=== PATIENT | female | born 1975 | race Caucasian/White ===

== ENCOUNTER 2020-10-11 17:07 | Outpatient (CLI) | payer BC ==
[~2020-10-11] VITALS: Ht 157.5 cm; Wt 72.7 kg
--- NOTE | 2020-10-11 17:15 | NUR ---
Patient arrives ambulatory with S/O with complaints of vaginal bleeding and cramping. Patient does not present with records. Patient states she is a G4L2 with a history of 2 SVDs and one SAB. Patient states she was seen in [place], [place] at "[facility] and was last seen in June". Patient states her LMP is around 05/06 and had a sono at that office that dated her "around 15-16 weeks". Patient states she is in the process of getting care set up with Dr. Bonds's office and was "working on an appointment for next week". Patient states she woke up "in a pool of blood yesterday morning". She said she has had continued bleeding with "handfuls of clots and atwood stuff" with intense cramping. Patient states her only medical history is a history of anemia. Jose Guzman RN at bedside and unable to doppler FHTs. Dr. Arndt notified, see physician notification. Patient updated on plan of care. 1739- Dr. Arndt at bedside. Bedside ultrasound performed, unable to visualize IUP per physician. Physician orders formal ultrasound and labs.
[2020-10-11 17:20] VITALS: BP 135/87; PULSE 88; TEMP 98.1
--- NOTE | 2020-10-11 17:45 | NUR ---
SVE per Dr. Arndt. 1-2/thick/high, vaginal bleeding noted. Nothing noted in vaginal vault.
--- NOTE | 2020-10-11 18:06 | NUR ---
Ultrasound at bedside.
--- NOTE | 2020-10-11 18:10 | NUR ---
pt out of bathroom, dressed in own clothes sitting in chair. Reports vaginal bleeding and clots. States "more comfortable in my own clothes" Explained to pt that we are waiting for lab results to determine further plan of care. Pt inquires how long lab will take.
[2020-10-11 18:21] LABS: BASO # 0.1 (0.0-0.2); BASO % 0.6 % (0.0-2.0); EOS # 0.1 (0.0-0.7); EOS % 0.9 % (0-4.0); GRAN # 9.5 (1.4-6.5); GRAN % 75.5 % (42.2-75.2); LYMPH % 16.1 % (20.0-51.0); MEAN CELL VOLUME 67 fl (80.0-100.0); MEAN CORPUSCULAR HGB CONC 28 g/dl (33.0-37.0); MEAN PLATELET VOLUME 9.7 fl (7.4-10.4); MONO # 0.8 (0.1-0.6); MONO % 6.5 % (1.7-9.3); PLATELET COUNT 518 K/mm3 (130-400); RED BLOOD COUNT 4.85 M/mm3 (4.10-5.30); REDCELL DISTRIBUTION WIDTH-CV 19.3 % (11.5-14.5)
[2020-10-11 18:23] LABS: HEMATOCRIT 32.5 % (37.0-47.0); HEMOGLOBIN 9.1 g/dl (12.5-16.0); MEAN CORPUSCULAR HEMOGLOBIN 19 pg (27.0-31.0)
--- NOTE | 2020-10-11 18:25 | NUR ---
Dr Arndt into room to review lab/ultrasound findings. Explained to pt that there is no indication of in uterus or blood work. Also explained to pt that there does appear to be a uterine fibroid. Pt inquires "how can I not be prenant, where did the baby go, why haven't I had my priod" Significant other states "maybe you lost it at home" Dr Arndt reveals that r/t labs and ultrasound that it is unlikely that pt was . Suggest follow up at [facility] in 1 week. Ambulatory off unit with significant other @[id number].
[2020-10-11 19:06] LABS: HIV 1/2 Antibodies Non-Reactive; HIV-1p24 Antigen Non-Reactive
[2020-10-11 21:21] LABS: COLLECTION METHOD CATHETER
[2020-10-11 21:34] LABS: MUCOUS Present /lpf; PH 6 (5-8); URINE APPEARANCE Cloudy; URINE BACTERIA None Seen /hpf; URINE BILIRUBIN Negative (NEGATIVE); URINE BLOOD 3+ (NEGATIVE); URINE CALCIUM OXALATE CRYSTAL Present /hpf; URINE COLOR Yellow; URINE GLUCOSE Negative (NEGATIVE); URINE KETONE Negative (NEGATIVE); URINE LEUKOCYTE ESTERASE Trace (NEGATIVE); URINE NITRATE Negative (NEGATIVE); URINE PROTEIN(semi-quant) 2+ (NEGATIVE); URINE RBC >50 /hpf; URINE UROBILINOGEN Negative (NEGATIVE); URINE WBC 20-50 /hpf
[2020-10-11 22:09] LABS: TRICYCLIC ANTIDEPRESS URINE NEGATIVE
[2020-10-12 18:20] LABS: HEPATITIS B SURFACE ANTIGEN Negative (Negative)
== END 2020-10-11 18:40 | disposition home or self-care (01) ==
LOC: LDRO 17:07 → LDR 17:07 → LDRO 17:15 → LDR 18:40
PROVIDERS: Obstetrics & Gynecology
DX: O46.93 Antepartum hemorrhage, unspecified, third trimester (principal); R25.2 Cramp and spasm; N85.2 Hypertrophy of uterus; Z3A.00 Weeks of gestation of pregnancy not specified
CPT/HCPCS: OP

== ENCOUNTER 2021-03-12 08:05 | Emergency (ER) | payer BC ==
[~2021-03-12] VITALS: Ht 152.4 cm; Wt 70.0 kg
[2021-03-12] MEDS ORDERED: PROFE180 MG PO (08:24)
[2021-03-12 08:41] LABS: BASO # 0.1 (0.0-0.2); BASO % 0.9 % (0.0-2.0); EOS # 0.1 (0.0-0.7); EOS % 0.9 % (0-4.0); GRAN # 4.4 (1.4-6.5); GRAN % 56.1 % (42.2-75.2); LYMPH # 2.6 (1.2-3.4); LYMPH % 33.2 % (20.0-51.0); MEAN CELL VOLUME 66 fl (80.0-100.0); MEAN CORPUSCULAR HGB CONC 28 g/dl (33.0-37.0); MEAN PLATELET VOLUME 9.9 fl (7.4-10.4); MONO # 0.7 (0.1-0.6); MONO % 8.5 % (1.7-9.3); PLATELET COUNT 453 K/mm3 (130-400); RED BLOOD COUNT 4.25 M/mm3 (4.10-5.30); REDCELL DISTRIBUTION WIDTH-CV 16.8 % (11.5-14.5)
[2021-03-12 08:44] LABS: HEMOGLOBIN 7.9 g/dl (12.5-16.0); MEAN CORPUSCULAR HEMOGLOBIN 19 pg (27.0-31.0)
[2021-03-12 08:50] LABS: PROTHROMBIN TIME 11.3 SECONDS (9.7-12.8)
[2021-03-12 08:52] LABS: ALANINE AMINOTRANSFERASE 14 U/L (4-34); ALBUMIN 3.8 gm/dL (3.5-5.0); ALKALINE PHOSPHATASE 85 U/L (50-136); ANION GAP 6 mmol/L (7-16); AST,SGOT 22 U/L (15-37); BILIRUBIN,TOTAL 0.3 mg/dL (0.0-1.0); BLOOD UREA NITROGEN 9 mg/dL (7-17); CALCIUM 8.5 mg/dL (8.4-10.2); CARBON DIOXIDE 23 mmol/L (22-30); CHLORIDE 107 mmol/L (98-107); CREATININE, serum 0.62 (0.52-1.25); GLUCOSE 99 mg/dL (74-106); POTASSIUM 3.8 mmol/L (3.4-5.0); SODIUM 137 mmol/L (137-145); TOTAL PROTEIN 7.1 gm/dL (6.4-8.2)
[2021-03-12 08:53] LABS: PARTIAL THROMBOPLASTIN TIME 27.4 SECONDS (26.0-37.0)
[2021-03-12 08:55] LABS: D-DIMER < 200.00 ng/mLDDu (200-230)
[2021-03-12 09:08] LABS: TROPONIN-I < 0.012 ng/mL (0.000-0.035)
[2021-03-12 11:07] VITALS: BP 138/64; PULSE 66; TEMP 97.6
== END 2021-03-12 11:08 | disposition home or self-care (01) ==
LOC: COL.ER 08:05
PROVIDERS: Family Medicine
DX: D64.9 Anemia, unspecified (principal); Z87.891 Personal history of nicotine dependence

== ENCOUNTER 2021-10-02 08:09 | Emergency (ER) | payer BC ==
[~2021-10-02] VITALS: Ht 157.5 cm; Wt 68.2 kg
[~2021-10-02 08:09] MED LIST: PROFE180 MG PO
[2021-10-02 08:24] VITALS: TEMP 97.9
[2021-10-02 08:38] LABS: COLLECTION METHOD CLEAN CATCH
[2021-10-02 08:49] LABS: MUCOUS Present (NOT PRESENT); PH 5 (5-8); SQUAMOUS EPITHELIAL 0-2 /hpf (0-10); URINE APPEARANCE Clear (CLEAR/HAZY); URINE BACTERIA Rare /hpf (NONE SEEN); URINE BILIRUBIN Negative (NEGATIVE); URINE BLOOD 1+ (NEGATIVE); URINE COLOR Yellow (YELLOW); URINE GLUCOSE Negative (NEGATIVE); URINE KETONE Negative (NEGATIVE); URINE LEUKOCYTE ESTERASE Negative (NEGATIVE); URINE NITRATE Negative (NEGATIVE); URINE PROTEIN(semi-quant) Negative (NEGATIVE); URINE UROBILINOGEN Negative (NEGATIVE)
[2021-10-02 08:55] LABS: BASO # 0.1 K/mm3 (0.0-0.2); BASO % 1.1 % (0.0-2.0); EOS # 0.1 K/mm3 (0.0-0.7); EOS % 1.8 % (0.0-4.0); GRAN # 4.3 K/mm3 (1.4-6.5); GRAN % 56.3 % (42.2-75.2); LYMPH # 2.4 K/mm3 (1.2-3.4); LYMPH % 31.8 % (20.0-51.0); MEAN CELL VOLUME 63 fl (80.0-100.0); MEAN CORPUSCULAR HGB CONC 28 g/dl (33.0-37.0); MEAN PLATELET VOLUME 9.9 fl (7.4-10.4); MONO # 0.7 K/mm3 (0.1-0.6); MONO % 8.7 % (1.7-9.3); PLATELET COUNT 449 K/mm3 (130-400); RED BLOOD COUNT 4.72 M/mm3 (4.10-5.30); REDCELL DISTRIBUTION WIDTH-CV 19.9 % (11.5-14.5)
[2021-10-02 08:57] LABS: HEMATOCRIT 29.7 % (37.0-47.0); HEMOGLOBIN 8.2 g/dl (12.5-16.0); MEAN CORPUSCULAR HEMOGLOBIN 17 pg (27-31)
[2021-10-02 09:14] LABS: ALBUMIN 3.7 gm/dL (3.5-5.0); BILIRUBIN,TOTAL 0.4 mg/dL (0.2-1.2); CALCIUM 8.5 mg/dL (8.4-10.2); CREATININE, serum 0.68 mg/dL (0.57-1.11); POTASSIUM 3.8 mmol/L (3.5-4.5); TOTAL PROTEIN 6.8 gm/dL (6.2-8.1)
[2021-10-02] MEDS ORDERED: CARAFATE 1GM1 G PO (11:23)
[2021-10-02 12:03] VITALS: BP 128/82; PULSE 72
== END 2021-10-02 12:03 | disposition home or self-care (01) ==
LOC: COL.ER 08:09
PROVIDERS: Emergency Medicine
DX: R05.9 Cough, unspecified (principal)
CPT/HCPCS: J7030

== ENCOUNTER 2021-11-26 08:03 | Emergency (ER) | payer SELFPAY ==
[~2021-11-26] VITALS: Ht 152.4 cm; Wt 71.8 kg
[~2021-11-26 08:03] MED LIST changes: +CARAFATE 1GM1 G PO
[2021-11-26 08:29] VITALS: TEMP 97.8
[2021-11-26 08:49] LABS: COLLECTION METHOD CLEAN CATCH
[2021-11-26 08:53] LABS: BASO # 0.1 K/mm3 (0.0-0.2); BASO % 0.8 % (0.0-2.0); EOS # 0.1 K/mm3 (0.0-0.7); EOS % 1.2 % (0.0-4.0); GRAN # 4.4 K/mm3 (1.4-6.5); GRAN % 58.2 % (42.2-75.2); LYMPH # 2.4 K/mm3 (1.2-3.4); MEAN CELL VOLUME 67 fl (80.0-100.0); MEAN CORPUSCULAR HGB CONC 29 g/dl (33.0-37.0); MEAN PLATELET VOLUME 10.3 fl (7.4-10.4); MONO # 0.7 K/mm3 (0.1-0.6); MONO % 8.5 % (1.7-9.3); PLATELET COUNT 377 K/mm3 (130-400); RED BLOOD COUNT 4.73 M/mm3 (4.10-5.30); REDCELL DISTRIBUTION WIDTH-CV 24.3 % (11.5-14.5)
[2021-11-26 08:55] LABS: HEMATOCRIT 31.8 % (37.0-47.0); HEMOGLOBIN 9.2 g/dl (12.5-16.0); MEAN CORPUSCULAR HEMOGLOBIN 19 pg (27-31)
[2021-11-26 08:57] LABS: MUCOUS Present (NOT PRESENT); PH 5 (5-8); URINE APPEARANCE Hazy (CLEAR/HAZY); URINE BACTERIA None Seen /hpf (NONE SEEN); URINE BILIRUBIN Negative (NEGATIVE); URINE BLOOD 1+ (NEGATIVE); URINE COLOR Yellow (YELLOW); URINE GLUCOSE Negative (NEGATIVE); URINE KETONE Negative (NEGATIVE); URINE LEUKOCYTE ESTERASE Negative (NEGATIVE); URINE NITRATE Negative (NEGATIVE); URINE PROTEIN(semi-quant) Negative (NEGATIVE); URINE UROBILINOGEN Negative (NEGATIVE)
[2021-11-26 09:16] LABS: ALBUMIN 3.6 gm/dL (3.5-5.0); BILIRUBIN,TOTAL 0.3 mg/dL (0.2-1.2); CALCIUM 8.4 mg/dL (8.4-10.2); CREATININE, serum 0.63 mg/dL (0.57-1.11); POTASSIUM 3.7 mmol/L (3.5-4.5); TOTAL PROTEIN 6.5 gm/dL (6.2-8.1)
[2021-11-26] MEDS ORDERED: CARAFATE 1GM1 G PO (10:13)
[2021-11-26] MEDS ORDERED: ZOFRAN ODT4 MG PO (10:13)
[2021-11-26 10:23] VITALS: BP 125/70; PULSE 64
== END 2021-11-26 10:23 | disposition home or self-care (01) ==
LOC: COL.ER 08:03
PROVIDERS: Emergency Medicine
DX: R10.31 Right lower quadrant pain (principal); R10.32 Left lower quadrant pain; R11.2 Nausea with vomiting, unspecified; D64.9 Anemia, unspecified; Z32.02 Encounter for pregnancy test, result negative; Z28.310 Unvaccinated for COVID-19
CPT/HCPCS: J7030; Q9967

== ENCOUNTER 2022-11-14 02:15 | Emergency (ER) | payer SELFPAY ==
[~2022-11-14] VITALS: Ht 152.4 cm; Wt 71.4 kg
[~2022-11-14 02:15] MED LIST changes: +ZOFRAN ODT4 MG PO
[2022-11-14 03:04] VITALS: BP 122/89; PULSE 73; TEMP 98.4
== END 2022-11-14 03:04 | disposition home or self-care (01) ==
LOC: COL.ER 02:15
DX: S50.11XA Contusion of right forearm, initial encounter (principal); Z28.310 Unvaccinated for COVID-19; Y00.XXXA Assault by blunt object, initial encounter